=== PATIENT | female | born 1960 | race Caucasian/White ===

== ENCOUNTER 2016-12-19 07:41 | Emergency (ER) | payer BC, OTHER ==
[~2016-12-19] VITALS: Ht 160 cm; Wt 55.3 kg
[2016-12-19] MEDS ORDERED: LAMO200T3 PO (08:15)
[2016-12-19] MEDS ORDERED: QUET50TA5 PO (08:16)
[2016-12-19] MEDS ORDERED: OXYcodone/APAP 5/325MG TABLET PO ONE (08:30)
[2016-12-19] MEDS ORDERED: KETOROLAC 30 MG/1 ML IM ONE (08:30)
[2016-12-19 08:41] LABS: BLOOD UREA NITROGEN 10 mg/dL (7-18)
[2016-12-19] MEDS ORDERED: OXYcodone/APAP 5/325MG TABLET ONE (08:44)
[2016-12-19] MEDS ORDERED: KETOROLAC 30 MG/1 ML ONE (08:44)
[2016-12-19] MEDS ORDERED: SODIUM CHLORIDE 0.9% 1,000 ML IV ONE (08:51)
[2016-12-19] MEDS ORDERED: SODIUM CHLORIDE 0.9% 1,000ML IVBOLUS ONE (09:00)
[2016-12-19] MEDS ORDERED: KETOROLAC 30 MG/1 ML IVPush ONE (09:00)
[2016-12-19 10:39] LABS: PATH.CAST-FLAG NOT PRESENT; SPERM-FLAG NOT PRESENT; SRC-FLAG NOT PRESENT; XTAL-FLAG NOT PRESENT; YLC-FLAG NOT PRESENT
[2016-12-19 11:56] VITALS: BP 107/55
== END 2016-12-19 11:58 | disposition home or self-care (01) ==
LOC: ED 09:13
DX: L51.9 Erythema multiforme, unspecified (principal)
CPT/HCPCS: 36415; 80048; 81001; 82040; 83605; 84145; 85025; 85610; 85651; 85730; 86141; 87040; 87086; 96361; 96374; 99284; J1885; J7030